=== PATIENT | female | born 1975 | race African-American/Black ===

== ENCOUNTER 2020-09-08 01:51 | Emergency (ER) | payer OTHER ==
[2020-09-08 03:00] LABS: ABSOLUTE BASOPHILS 0.1 thou/uL (0.0-0.2); ABSOLUTE LYMPHOCYTES 1.9 thou/uL (0.8-5.3); ABSOLUTE MONOCYTES 0.6 thou/uL (0.0-1.2); ABSOLUTE NEUTROPHILS 6.3 thou/uL (1.6-8.1); BASOPHILS 0.6 %; EOSINOPHILS 0.4 %; HEMATOCRIT 31.3 % (37.0-47.0); HEMOGLOBIN 10.1 gm/dL (12.0-15.0); LYMPHOCYTES 21.2 %; MCH 22.3 pg (26.0-34.0); MCHC 32.2 g/dL (28.0-37.0); MCV 69.3 fL (80.0-100.0); MONOCYTES 6.7 %; MPV 8.6 fl. (7.2-11.1); NUCLEATED RBCS 0 /100WBC; PLATELET COUNT* 248 thou/uL (150-400); POLYS 71.1 %; RBC 4.51 mil/uL (4.20-5.00); RDW-CV 20.7 % (10.5-14.5); WBC 8.8 thou/uL (4.0-11.0)
[2020-09-08 03:12] LABS: CALCIUM 8.9 mg/dL (8.5-10.1); CREATININE 1.3 mg/dL (0.6-1.3); POTASSIUM 3.6 mmol/L (3.5-5.1)
[2020-09-08 03:14] LABS: AMP/METHAMP Negative (Negative); BARBITURATES Negative (Negative); BENZODIAZEPINES Negative (Negative); COCAINE POSITIVE (Negative); METHADONE Negative (Negative); OPIATES Negative (Negative); PCP Negative (Negative); THC Negative (Negative)
[2020-09-08 03:26] LABS: ANISOCYTOSIS 2+; HYPOCHROMASIA 2+; MICROCYTES 2+; OVALOCYTES 1+; POIKILOCYTOSIS 2+; POLYCHROMASIA 1+
[2020-09-08 03:27] LABS: SCHISTOCYTES 1+; TARGET CELLS Occasional
[2020-09-08 04:24] LABS: URINE BILIRUBIN NEGATIVE (Negative); URINE BLOOD NEGATIVE (Negative); URINE CLARITY CLEAR; URINE COLOR YELLOW; URINE GLUCOSE-RANDOM NEGATIVE (Negative); URINE KETONES NEGATIVE (Negative); URINE LEUKOCYTES NEGATIVE (Negative); URINE NITRITE NEGATIVE (Negative); URINE PROTEIN NEGATIVE (Negative); URINE UROBILINOGEN 0.2 E.U./dl (0.2-1.0)
--- NOTE | 2020-09-11 18:21 | EKG ---
[place] [address] ELECTROCARDIOGRAM REPORT Name: JAIRO DOSHI Room: [facility]#: [id number] Admission: 09/08/20 Attend Phys: Discharge: 09/08/20 Date of : 77 Date of Service: 09/08/20 0335 Report #: [id number] THIS REPORT FOR: //name// [facility] ED Test Date: 2020-09-08 Test Time: 03:35:46 Pat Name: JAIRO DOSHI Department: Room: Gender: F [employer]: : 1975 Requested By: Minnie Bowie Order Number: [id number] Pippa MD: Daniel Mccall Measurements Intervals [place] Rate: 79 P: 63 DE: 135 QRS: 36 QRSD: 90 T: 48 QT: 397 QTc: 456 Interpretive Statements Sinus rhythm No previous ECG available for comparison Electronically Signed On 09-11-2020 18:20:57 CDT by Daniel Mccall [email or web address] <ELECTRONICALLY SIGNED> By: Daniel Mccall MD, [facility] 09/11/20 1820 0335 0335 Dainel Mccall MD, FACC /EPI
== END 2020-09-08 04:38 | disposition home or self-care (01) ==
LOC: M.ERS 01:51
PROVIDERS: Emergency Medicine
DX: F14.10 Cocaine abuse, uncomplicated (principal)